=== PATIENT | male | born 1965 | race Caucasian/White ===

== ENCOUNTER 2021-12-03 15:49 | Emergency (ER) | payer SELFPAY ==
--- NOTE | 2021-12-03 | ECG_ITS ---
Test Reason : CHEST PAIN Blood Pressure : / mmHG Vent. Rate : 086 BPM Atrial Rate : 086 BPM P-R Int : 152 ms QRS Dur : 116 ms QT Int : 366 ms P-R-T Axes : 069 041 059 degrees QTc Int : 437 ms Normal sinus rhythm Inferior infarct , age undetermined Abnormal ECG No previous ECGs available Referred By: Generic ED Physician Electronically Signed By:Mj Estes
--- NOTE | ~2021-12-03 | XR_ITS ---
EXAMINATION: XR CHEST CLINICAL INFORMATION: Chest pain COMPARISON: Previous chest x-ray most recent January 2021 TECHNIQUE: Frontal view of the chest was obtained. FINDINGS: The cardiac and mediastinal contours are stable. The lungs are clear. There is no pleural effusion or pneumothorax. There are degenerative changes of the spine and at the shoulder joints. XR/XR chest 1V IMPRESSION: No evidence for acute disease in the chest.
[2021-12-03 15:59] VITALS: BP 129/84; PULSE 86; RESP 20; O2SAT 98; BMI 36.9
[2021-12-03 16:13] LABS: MANUAL DIFF FLAG NO
[2021-12-03 16:14] LABS: Basophils Absolute Auto 0.1 X10*3/uL (0.0-0.2); Basophils Percent Auto 0.8 % (0-2); Eosinophils Absolute Auto 0.4 X10*3/uL (0.0-0.4); Eosinophils Percent Auto 6.2 % (0-4); Hematocrit 47.7 % (42.0-52.0); Hemoglobin 16.3 g/dl (14.0-18.0); Imm Gran Abs Auto 0.01 X10*3/uL (0.00-0.03); Imm Gran Pct Auto 0.2 % (0.0-0.4); Lymphocytes Absolute Auto 1.2 X10*3/uL (1.2-4.9); Lymphocytes Percent Auto 17.9 % (20-40); Mean Corpuscular HGB Conc 34.2 g/dl (31.0-36.0); Mean Corpuscular Hemoglobin 30.8 pg (27.0-33.0); Mean Platelet Volume 9.5 fL (9.4-12.4); Monocytes Absolute Auto 0.5 X10*3/uL (0.1-1.2); Monocytes Percent Auto 7.6 % (2-11); Neutrophils Absolute Auto 4.5 x10*3/uL (2.0-8.3); Neutrophils Percent Auto 67.3 % (45-73); Platelet Count 174 X10*3/uL (160-400); Red Cell Distribution Width 13.5 % (11.0-16.0); White Blood Count 6.6 X10*3/uL (4.8-10.8)
[2021-12-03 16:29] LABS: Alanine Aminotransferase 33 U/L (0-40); Albumin Level 4.5 g/dL (3.5-5.0); Alkaline Phosphatase 130 U/L (39-117); Anion Gap 12 (12-20); Aspartate Amino Transferase 19 U/L (5-37); Bilirubin Total 0.6 mg/dL (0.0-1.0); Blood Urea Nitrogen 11 mg/dL (9-16); Calcium 9.6 mg/dL (8.4-10.2); Carbon Dioxide 26 mmol/L (22-29); Chloride 103 mmol/L (96-108); Creatinine Clr Calc Pharmacy 120.4; Estimated Glomerular Filt Rate > 60; Glucose Random 86 mg/dL (60-115); Potassium 4.1 mmol/L (3.3-5.1); Sodium 137 mmol/L (135-145); Total Protein 7.6 g/dL (6.5-8.0)
[2021-12-03 16:33] LABS: Troponin-I High Sensitivity < 3.5 ng/L (<3.5-35.0)
[2021-12-03 16:42] VITALS: BP 145/103; PULSE 85
[2021-12-03] MEDS: Ibuprofen 600 MG TABLET PO (16:45)
== END 2021-12-04 01:30 | disposition left against medical advice (07) ==
PROVIDERS: Emergency Provider Emergency Medicine
DX: R07.9 Chest pain, unspecified (principal)
CPT/HCPCS: 36415; 71045; 80053; 84484; 85025; 93005; 99283

== ENCOUNTER 2021-12-10 08:59 | Observation (INO) | payer OTHER, SELFPAY ==
--- NOTE | ~2021-12-10 | CT_ITS ---
EXAMINATION: CT ABDOMEN AND PELVIS WITH CONTRAST CLINICAL INFORMATION: Epigastric pain. Nausea vomiting and diarrhea. History of pancreatitis. COMPARISON: Previous CT of the abdomen and pelvis most recent 11/19/2021 and right upper quadrant ultrasound 10/30/2021 TECHNIQUE: Multidetector volumetric images were obtained from the superior aspect of the liver through the pubic symphysis following administration 85 mL of Omnipaque 350 intravenous contrast. Sagittal and coronal reformatted images were obtained on the technologist's workstation. Oral contrast: Yes This CT examination was performed using dose optimization techniques as appropriate, variously including the following: *Automated exposure control *Adjustment of mA and/or kV according to patient size (this includes techniques or standardized protocols for targeted exams where dose is matched to indication/reason for exam; i.e. extremities or head) *Use of iterative reconstruction technique DLP: 1022 mGy-cm FINDINGS: LUNG BASES: The visualized lung bases are unremarkable. LIVER, GALLBLADDER, AND BILIARY TREE: The liver is normal in size, shape, and attenuation. No focal hepatic lesion or biliary ductal dilatation is present. The gallbladder has been removed. PANCREAS: Unremarkable. SPLEEN: Spleen is slightly enlarged measuring 14.7 cm in length. ADRENAL GLANDS: There is a 1.4 cm low-attenuation left adrenal lesion that is stable and probably represents a benign adenoma. KIDNEYS AND URETERS: The kidneys are normal in size, shape, and attenuation. No hydronephrosis, hydroureter, or calculi seen. No perinephric stranding. BLADDER: Not optimally distended. The bladder wall may be thickened. GASTROINTESTINAL TRACT: The small and large bowel are unremarkable. The appendix is unremarkable. ABDOMINAL WALL: There is evidence of previous bilateral inguinal hernia repair with mesh. LYMPH NODES: Normal. VASCULAR: There is evidence of atherosclerotic disease. No aneurysm is seen. PELVIC VISCERA: Unremarkable. OSSEOUS STRUCTURES: There are degenerative changes of the spine. There is mild anterior subluxation of L5 with respect to S1 and L5 pars defect. CT/CT abdomen pelvis w con IMPRESSION: Normal-appearing pancreas. No evidence of pancreatitis. Post cholecystectomy. Slightly enlarged spleen. Stable low-attenuation left adrenal lesion probably representing a benign adenoma. These findings are similar to previous exams. Fleischner guidelines were followed.
[2021-12-10 09:13] VITALS: BP 157/82; PULSE 78; RESP 22; TEMP 36.8; O2SAT 95; BMI 38.0
[2021-12-10 09:26] LABS: MANUAL DIFF FLAG NO
--- NOTE | 2021-12-10 09:29 | ECG_ITS ---
Test Reason : ap Blood Pressure : / mmHG Vent. Rate : 085 BPM Atrial Rate : 085 BPM P-R Int : 166 ms QRS Dur : 112 ms QT Int : 386 ms P-R-T Axes : 076 105 070 degrees QTc Int : 459 ms Normal sinus rhythm Rightward axis Incomplete right bundle branch block Inferior infarct (cited on or before 03-DEC-2021) Abnormal ECG When compared with ECG of 03-DEC-2021 16:00, QRS axis Shifted right Referred By: Generic ED Physician Electronically Signed By:BEN MURPHY MD
[2021-12-10 09:30] LABS: Basophils Percent Auto 0.4 % (0-2); Eosinophils Absolute Auto 0.5 X10*3/uL (0.0-0.4); Eosinophils Percent Auto 6.5 % (0-4); Hematocrit 46.9 % (42.0-52.0); Hemoglobin 16.1 g/dl (14.0-18.0); Imm Gran Abs Auto 0.02 X10*3/uL (0.00-0.03); Imm Gran Pct Auto 0.3 % (0.0-0.4); Lymphocytes Absolute Auto 1.2 X10*3/uL (1.2-4.9); Lymphocytes Percent Auto 16.2 % (20-40); Mean Corpuscular HGB Conc 34.3 g/dl (31.0-36.0); Mean Corpuscular Volume 90.4 fL (80.0-98.0); Mean Platelet Volume 9.8 fL (9.4-12.4); Monocytes Absolute Auto 0.5 X10*3/uL (0.1-1.2); Monocytes Percent Auto 7.4 % (2-11); Neutrophils Percent Auto 69.2 % (45-73); Platelet Count 176 X10*3/uL (160-400); Red Blood Count 5.19 X10*6/uL (4.60-5.80); Red Cell Distribution Width 13.9 % (11.0-16.0); White Blood Count 7.3 X10*3/uL (4.8-10.8)
[2021-12-10 09:45] LABS: Alanine Aminotransferase 24 U/L (0-40); Albumin Level 4.6 g/dL (3.5-5.0); Alkaline Phosphatase 121 U/L (39-117); Anion Gap 13 (12-20); Aspartate Amino Transferase 20 U/L (5-37); Bilirubin Direct 0.3 mg/dL (0.0-0.5); Bilirubin Total 0.9 mg/dL (0.0-1.0); Blood Urea Nitrogen 16 mg/dL (9-16); Calcium 9.1 mg/dL (8.4-10.2); Carbon Dioxide 27 mmol/L (22-29); Chloride 103 mmol/L (96-108); Estimated Glomerular Filt Rate > 60; Glucose Random 126 mg/dL (60-115); Lipase 423 U/L (8-78); Potassium 3.9 mmol/L (3.3-5.1); Sodium 139 mmol/L (135-145); Total Protein 7.6 g/dL (6.5-8.0)
[2021-12-10 10:00] VITALS: BP 125/76; PULSE 78; RESP 18; TEMP 36.4; O2SAT 98
[2021-12-10] MEDS: ondansetron HCL 4 MG/2 ML VIAL IVPUSH (10:24)
[2021-12-10] MEDS: Morphine Sulfate 4 MG/ML CARTRIDGE IVPUSH (10:24)
[2021-12-10] MEDS: 0.9 % Sodium Chloride 1,000 ML 999 ML IV ×2 (10:25→11:44)
--- NOTE | 2021-12-10 10:25 | PC.NURSE ---
Pt c/o mid abd pain with n/v since 6am. feels like my pancreas did months ago . no active vomiting. pt grimacing in bed. moist mm. skin pwd. abd is soft. no distention.
[2021-12-10 10:31] LABS: Magnesium 2.2 mg/dL (1.6-2.6)
[2021-12-10] MEDS: HYDROmorphone HCl 1 MG/ML SYRINGE IVPUSH ×3 (10:48→14:21)
--- NOTE | 2021-12-10 10:52 | PC.NURSE ---
Pt medicated again for persistent abd pain. no vomiting. unable to tolerate CT table as of yet.
--- NOTE | 2021-12-10 11:06 | ED_ITS ---
HPI - Abdominal Pain General Chief Complaint: Abdominal Pain Stated Complaint: NAUSEA VOMITING DIARRHEA ABD PAIN Time Seen by Provider: 12/10/21 10:04 Source: patient Mode of arrival: ambulatory History of Present Illness HPI narrative: 56-year-old male with a past medical history of anxiety, psoriatic arthritis, cholecystectomy, pancreatitis, presenting to the ED complaining of epigastric abdominal pain since last night with associated nausea, vomiting, and diarrhea. Admits pain feels similar to prior pancreatitis flares. Denies EtOH use. Denies fever, chills, constipation, dysuria /hematuria MD elicited complaint: abdominal pain Onset (ago): hour(s) Pain Consistency: constant Location: epigastric Severity: similar to previous episodes Related Data Home Medications Medication Instructions Recorded Confirmed clonazepam 1 mg tablet 1 mg PO TID 12/10/21 12/10/21 sertraline 100 mg tablet (Zoloft) 200 mg PO DAILY 12/10/21 12/10/21 Allergies Allergy/AdvReac Type Severity Reaction Status Date / Time haloperidol [From Haldol] Allergy Involuntary Verified 12/10/21 09:16 Spasms ketorolac [From Toradol] Allergy Involuntary Verified 12/10/21 09:16 Spasms Review of Systems Review of Systems Constitutional: No Fever, No Chills, No Fatigue, No Malaise ENT/Mouth: No Ear Pain, No Nasal Congestion, No sore throat, No Rhinorrhea, No Swallowing Difficulty Eyes: No Eye Pain, No Swelling, No Redness, No Discharge Cardiovascular: No Chest Pain, No SOB, No Edema, No Palpitations Respiratory: No Cough, No Dyspnea Gastrointestinal: + Nausea, + Vomiting, + Diarrhea, No Constipation, + Abdominal pain Genitourinary: No Dysuria, No Urinary Frequency, No Hematuria, No Flank Pain, No Urinary Flow Changes, No Hesitancy Musculoskeletal: No joint pain, No Myalgias, No Joint Swelling Skin: No Skin Lesions, No rash Neuro: No Weakness, No Dizziness, No Headache Yes all other systems are reviewed and are negative [facility] Past Medical History Attestation statement: The following information was validated with the patient. Medical History Anxiety FH: cholecystectomy Psoriatic arthritis Social History Social History Alcohol intake: former Patient Tobacco Use Status: Current everyday Tobacco user Use of substances other than those prescribed or required for medical reasons: No Advance Directives: Yes Advance Directives Information Provided: Yes Advance Directives on File: No Physical Exam ED Vital Signs: Vital Signs - 24 hr 12/10/21 09:13 12/10/21 10:00 12/10/21 11:45 Temperature 98.3 F 97.6 F Pulse Rate 78 78 82 Respiratory Rate 22 H 18 18 Blood Pressure 157/82 H 125/76 112/68 Pulse Oximetry 95 98 96 BMI result Body Mass Index 38.0 Const Other: appears in pain General: cooperative and healthy appearing Orientation/consciousness: patient oriented x3 Limitations: no limitations HENMT Head: Yes normal to inspection Ears: hearing grossly normal bilaterally General nose exam: Normal external nose present Face and sinus: Yes normal facial exam Eyes General: appearance normal, both eyes and all related structures EOM: EOMs intact bilaterally Neck Neck: Yes normal visual inspection and Yes no meningeal signs Resp Effort & Inspection: normal respiratory effort and no respiratory distress Auscultation: clear to auscultation bilaterally Cardio Rate: regular rate Heart sounds: S1 normal heart sound present and S2 normal heart sound present GI Inspection: Yes normal to inspection Palpation (GI): Soft to palpation, Tenderness to palpation present (GI) in the epigastrum, in the LUQ and in the RUQ, no guarding and not rigid General: Yes no CVA tenderness Back/Spine/Pelvis Back: no CVA tenderness Skin Rashes: no rashes Wounds: no wounds Neuro General: patient oriented x3 and no meningeal signs Gait exam (Neuro): Normal gait present Extrem General: Yes normal to inspection Course Course Course Narrative: -1315-- no leukocytosis. Lipase 423. Labs otherwise unremarkable CT abdomen pelvis w con IMPRESSION: Normal-appearing pancreas. No evidence of pancreatitis. Post cholecystectomy. Slightly enlarged spleen. Stable low-attenuation left adrenal lesion probably representing a benign adenoma. These findings are similar to previous exams. - Wever's criteria on admission = 0, severe pancreatitis unlikely -1324-- on re-evaluation patient is still in severe pain. Will admit for further management ? MDM - Abdominal Pain MDM Narrative Medical decision making narrative: 56-year-old male with a past medical history of anxiety, psoriatic arthritis, cholecystectomy, pancreatitis, presenting to the ED complaining of epigastric abdominal pain since last night with associated nausea, vomiting, and diarrhea. on exam initially tachypneic likely from pain, writhing around on bed, abdomen soft with epigastric/ upper abdominal tenderness, no rebound or guarding, no CVAT. Concern for pancreatitis. Lower concern for appendicitis/diverticulitis or renal stone/pyelo. Plan: Labs, UA, CT, IVF, pain management, re-evaluate Differential Diagnosis Differential diagnosis: Likely abdominal pain and pancreatitis Medical Records Attestation: I reviewed the patient's medical records. Lab Data Attestation: I reviewed the patient's lab results. Result diagrams: 12/10/21 09:21 12/10/21 09:21 Labs: Lab Results 12/10/21 12/10/21 Range/Units 09:21 09:21 WBC 7.3 (4.8-10.8) X10*3/uL RBC 5.19 (4.60-5.80) X10*6/uL Hgb 16.1 (14.0-18.0) g/dl Hct 46.9 (42.0-52.0) % MCV 90.4 (80.0-98.0) fL MCH 31.0 (27.0-33.0) pg MCHC 34.3 (31.0-36.0) g/dl RDW 13.9 (11.0-16.0) % Plt Count 176 (160-400) X10*3/uL MPV 9.8 (9.4-12.4) fL Immature Gran % (Auto) 0.3 (0.0-0.4) % Neut % (Auto) 69.2 (45-73) % Lymph % (Auto) 16.2 L (20-40) % [place] % (Auto) 7.4 (2-11) % Eos % (Auto) 6.5 H (0-4) % Baso % (Auto) 0.4 (0-2) % Lymph # (Auto) 1.2 (1.2-4.9) X10*3/uL [place] # (Auto) 0.5 (0.1-1.2) X10*3/uL Eos # (Auto) 0.5 H (0.0-0.4) X10*3/uL Baso # (Auto) 0.0 (0.0-0.2) X10*3/uL Abs Immat Gran (auto) 0.02 (0.00-0.03) X10*3/uL Absolute Neuts (auto) 5.0 (2.0-8.3) x10*3/uL Absolute Nucleated RBC 0.000 (0.0-0.012) X10*3/uL Nucleated RBC % (auto) 0.0 (0.0-0.2) /100WBC Sodium 139 (135-145) mmol/L Potassium 3.9 (3.3-5.1) mmol/L Chloride 103 (96-108) mmol/L Carbon Dioxide 27 (22-29) mmol/L Anion Gap 13 (12-20) BUN 16 (9-16) mg/dL Creatinine 0.98 (0.5-1.4) mg/dL Estim Creat Clear Calc 104.0 Estimated GFR > 60 Random Glucose 126 H D (60-115) mg/dL Calcium 9.1 (8.4-10.2) mg/dL Magnesium 2.2 (1.6-2.6) mg/dL Total Bilirubin 0.9 (0.0-1.0) mg/dL Direct Bilirubin 0.3 (0.0-0.5) mg/dL AST 20 (5-37) U/L ALT 24 (0-40) U/L Alkaline Phosphatase 121 H (39-117) U/L Lactate Dehydrogenase 148 (118-273) U/L Total Protein 7.6 (6.5-8.0) g/dL Albumin 4.6 (3.5-5.0) g/dL Lipase 423 H (8-78) U/L Discharge Plan Discharge Clinical Impression: Pancreatitis Qualifiers: Chronicity: acute Pancreatitis type: unspecified pancreatitis type Acute pancreatitis complication: unspecified Qualified Code(s): K85.90 - Acute pancreatitis without necrosis or infection, unspecified Patient Disposition: Admitted As Inpatient
[2021-12-10 11:21] LABS: Lactate Dehydrogenase 148 U/L (118-273)
[2021-12-10] MEDS: iohexoL 350 MG/ML 100 ML INFUS..BTL IV (11:34)
[2021-12-10 11:45] VITALS: BP 112/68; PULSE 82; RESP 18; O2SAT 96
[2021-12-10] MEDS: Famotidine/PF 20 MG/2 ML VIAL IVPUSH (13:42)
[2021-12-10 14:05] LABS: COVID-19 Test Negative (Negative)
--- NOTE | 2021-12-10 14:15 | P.HPHOSP_ITS ---
History of Present Illness Date of Service: 12/10/21 Attending physician on admission: Cameron Morales Chief Complaint: abdominal pain this is a 56 year old male who presents to the ED with abdominal pain. He began having non-bloody emesis overnight followed by epigastic abdominal pain and kailey rrhea. He describes the abdominal pain as sharp in nature with radiation to his back. He reports numerous bouts of pancreatitis in the past. By his report these episodes never show any changes on CT scan. He denies the use of NSAIDs, he denies drinking alcohol, stating that he quit drinking [address] scan of the abdomen showed no acute abnormalities, unremarkable pancreas. His lab work was unremarkable with the exception of lipase of 423, mild elevation of alk phos at 121. He required multiple doses of IV narcotics in the ED and his abdominal pain was unable to be controlled. For this reason the decision was made to admit him for further management. [facility] Medical History (Updated 12/10/21 @ 14:33 by CIHVO Ware) Anxiety FH: cholecystectomy Psoriatic arthritis Sphincter of Oddi dysfunction Functional capacity: independent ambulation Surgical History (Updated 12/10/21 @ 14:30 by CHIVO Ware) H/O knee surgery History of cholecystectomy History of hernia surgery Previous back surgery Social History (Updated 12/10/21 @ 14:30 by CHIVO Ware) Alcohol intake: former Patient Tobacco Use Status: Current everyday Tobacco user Tobacco use type: Cigarette Cigarette Packs Per Day: 1 Use of substances other than those prescribed or required for medical reasons: No Advance Directives: Yes Advance Directives Information Provided: Yes Advance Directives on File: No Meds Allergies Allergy/AdvReac Type Severity Reaction Status Date / Time haloperidol [From Haldol] Allergy Involuntary Verified 12/10/21 09:16 Spasms ketorolac [From Toradol] Allergy Involuntary Verified 12/10/21 09:16 Spasms Active Medications: Current Medications Acetaminophen (Acetaminophen 325 Mg Tablet) 650 mg PO Q6H PRN PRN Reason: Pain, Mild (Pain Scale 1-3) Clonazepam (Clonazepam 1 Mg Tablet) 1 mg PO TID SANGITA Docusate Sodium (Docusate Sodium 100 Mg Capsule) 100 mg PO DAILY PRN PRN Reason: Constipation Famotidine (Famotidine/Pf 20 Mg/2 Ml Vial) 20 mg IVPUSH DAILY SANGITA Hydromorphone HCl (Hydromorphone Hcl 1 Mg/Ml Syringe) 1 mg IVPUSH Q4H PRN; Protocol PRN Reason: Pain, Severe (Pain Scale 7-10) Lactated Ringer's (Lr) 1,000 mls @ 100 mls/hr IVCONT .Q10H [facility] Ondansetron HCl (Ondansetron Hcl 4 Mg/2 Ml Vial) 4 mg IVPUSH Q8H PRN PRN Reason: Nausea and Vomiting Pharmacy Consult (Consult Rx Perform Med Rec) 1 each MISCELLANE ONCE PRN PRN Reason: Consult order Sertraline HCl (Sertraline Hcl 100 Mg Tablet) 200 mg PO DAILY [facility] Sodium Chloride (0.9 % Sodium Chloride Flush 3 Ml Syringe) 3 ml IVFLUSH QSHIFT [facility] Home Medications Medication Instructions Recorded Confirmed Last Taken Type clonazepam 1 mg tablet 1 mg PO TID 12/10/21 12/10/21 12/10/21 History sertraline 100 mg tablet (Zoloft) 200 mg PO DAILY 12/10/21 12/10/21 12/10/21 History Physical Exam Vital Signs and Narrative: Vital Signs: Last Vital Signs Temp 97.6 F 12/10/21 10:00 Pulse 82 12/10/21 11:45 Resp 18 12/10/21 11:45 BP 112/68 12/10/21 11:45 Pulse Ox 96 12/10/21 11:45 BMI result Body Mass Index 38.0 Const: General: cooperative, alert and awake Nutritional Appearance: overweight Orientation/consciousness: patient oriented x3 Resp: Effort & Inspection: normal respiratory effort and able to speak in complete sentences Cardio: Rate: regular rate Heart sounds: S1 normal heart sound present and S2 normal heart sound present GI: Other: soft, non-distended; tender primarily epigastric region Neuro: General: patient oriented x3 Extrem: Other: moving all 4 extremities spontaneously Results Labs CBC and Chem 7: 12/10/21 09:21 12/10/21 09:21 Labs: Laboratory Results - last 24 hr 12/10/21 12/10/21 12/10/21 09:21 09:21 13:45 MCV 90.4 MCH 31.0 MCHC 34.3 RDW 13.9 Plt Count 176 MPV 9.8 Immature Gran % (Auto) 0.3 Neut % (Auto) 69.2 Lymph % (Auto) 16.2 L [place] % (Auto) 7.4 Eos % (Auto) 6.5 H Baso % (Auto) 0.4 Lymph # (Auto) 1.2 [place] # (Auto) 0.5 Eos # (Auto) 0.5 H Baso # (Auto) 0.0 Abs Immat Gran (auto) 0.02 Absolute Neuts (auto) 5.0 Absolute Nucleated RBC 0.000 Nucleated RBC % (auto) 0.0 Anion Gap 13 Estim Creat Clear Calc 104.0 Estimated GFR > 60 Random Glucose 126 H D Calcium 9.1 Magnesium 2.2 Total Bilirubin 0.9 Direct Bilirubin 0.3 AST 20 ALT 24 Alkaline Phosphatase 121 H Lactate Dehydrogenase 148 Total Protein 7.6 Albumin 4.6 Lipase 423 H COVID-19 ([facility]) Negative COVID-19 Clin Com See Note Imaging Radiologist's Impressions: Impressions Abdomen/Pelvis CT 12/10/21 11:32 IMPRESSION: Normal-appearing pancreas. No evidence of pancreatitis. Post cholecystectomy. Slightly enlarged spleen. Stable low-attenuation left adrenal lesion probably representing a benign adenoma. These findings are similar to previous exams. Fleischner guidelines were followed. Assessment and Plan (1) Abdominal pain: Status: Acute Plan This is a 56 year old male with history of psoriatic arthritis, anxiety who presents with abdominal pain Abdominal pain possible gastritis h/o pancreatitis, but negative CT scan NPO, IVF IV pepcid Pain control ADAT Anxiety continue home meds dvt ppx - SCD boots code status - full code Attending: dr. morales Quality Stroke Does the patient have a stroke diagnosis?: No VTE Prior VTE?: No VTE Risk Level:: Medical - moderate - high VTE Device Contraindication: N/A - Device Ordered VTE Drug Contraindication: Treatment Not Indicated
[2021-12-10 14:22] VITALS: BP 127/81; PULSE 76; RESP 18; O2SAT 98
--- NOTE | 2021-12-10 15:19 | PC.NURSE ---
Patient stating that he wants to leave AMA. Reported feeling more comfortable after receiving 3rd dose of dilaudid. Pt asked for review of admission orders. after reviewing orders states that he will sign out AMA. 'I feel better and I might as well go home. Asked to stay for observation. States i'll probably be fine . Pt had asked at time to have dilaudid given undiluted and faster. While this RN was on the phone with Admiting provider patient left unseen. IV was removed by patient and was left on the cart in room 19.
--- NOTE | 2021-12-10 15:46 | MHC.CM.PN ---
Patient left AMA before being seen by case management.
--- NOTE | 2021-12-10 16:08 | PM.DS ---
DS: Providers Provider Date of Service: 12/10/21 Date of admission: 12/10/21 14:11 Date of discharge: 12/10/21 Primary care physician: None Physician Attending physician on discharge: Cameron Lopez Discharging clinician: Janeen Hill DS: Diagnosis Discharge Diagnosis (1) Abdominal pain: Status: Acute DS: Summary Hospital Course Hospital Course: patient admitted for abdominal pain. eloped from ED. please see admission H&P for details and physical exam Time Spent with Patient Time attestation: Total time spent providing and/or coordinating discharge services: Discharge coordination time: Greater than 30 minutes Quality: Stroke Does the patient have a stroke diagnosis?: No Physical Exam Vital Signs: Vital Signs: Last Vital Signs Temp 97.6 F 12/10/21 10:00 Pulse 76 12/10/21 14:22 Resp 18 12/10/21 14:22 BP 127/81 12/10/21 14:22 Pulse Ox 98 12/10/21 14:22 BMI result Body Mass Index 38.0 DS: Data Data Completed and Pending Labs on day of discharge: Laboratory Results - last 24 hr 12/10/21 12/10/21 12/10/21 09:21 09:21 13:45 WBC 7.3 RBC 5.19 Hgb 16.1 Hct 46.9 MCV 90.4 MCH 31.0 MCHC 34.3 RDW 13.9 Plt Count 176 MPV 9.8 Immature Gran % (Auto) 0.3 Neut % (Auto) 69.2 Lymph % (Auto) 16.2 L [place] % (Auto) 7.4 Eos % (Auto) 6.5 H Baso % (Auto) 0.4 Lymph # (Auto) 1.2 [place] # (Auto) 0.5 Eos # (Auto) 0.5 H Baso # (Auto) 0.0 Abs Immat Gran (auto) 0.02 Absolute Neuts (auto) 5.0 Absolute Nucleated RBC 0.000 Nucleated RBC % (auto) 0.0 Sodium 139 Potassium 3.9 Chloride 103 Carbon Dioxide 27 Anion Gap 13 BUN 16 Creatinine 0.98 Estim Creat Clear Calc 104.0 Estimated GFR > 60 Random Glucose 126 H D Calcium 9.1 Magnesium 2.2 Total Bilirubin 0.9 Direct Bilirubin 0.3 AST 20 ALT 24 Alkaline Phosphatase 121 H Lactate Dehydrogenase 148 Total Protein 7.6 Albumin 4.6 Lipase 423 H COVID-19 ([facility]) Negative COVID-19 Clin Com See Note Discharge Plan Discharge Patient Disposition: Left Against Medical Advice Discharge Diagnosis: abdominal pain Referrals: Physician,None [Primary Care Provider] - 1 Week Discharge Medications: No Action sertraline [Zoloft] 100 mg Tablet 200 mg PO DAILY 0RF clonazepam [Klonopin] 1 mg Tablet 1 mg PO BID 0RF clonazepam [Klonopin] 1 mg Tablet 0.5 - 1 mg PO BEDTIME PRN (Reason: Anxiety) 0RF amitriptyline 10 mg Tablet 20 mg PO BEDTIME 0RF Discharge Orders: Discharge Order (Routine); Ordered 12/10/21 Ordered By: Janeen Hill Care Plan Goals: left ama Health Concerns: left AMA Plan of Treatment: Recommend to follow up with primary GI and PCP Assessment: pt admitted for observation of acute abdominal pain, left against medical advice.
== END 2021-12-10 15:20 | disposition left against medical advice (07) ==
LOC: HO.ED 13:42 → HO.EDOVER 14:22
PROVIDERS: Physician Assistant; Admitting Provider Physician Assistant Medical; Emergency Provider Emergency Medicine; Visit Provider Physician Assistant Medical
DX: R10.13 Epigastric pain (principal); R11.2 Nausea with vomiting, unspecified; R19.7 Diarrhea, unspecified; R74.02 Elevation of levels of lactic acid dehydrogenase [LDH]; R74.8 Abnormal levels of other serum enzymes; K83.09 Other cholangitis; I25.10 Atherosclerotic heart disease of native coronary artery without angina pectoris; I45.19 Other right bundle-branch block; L40.50 Arthropathic psoriasis, unspecified; F41.9 Anxiety disorder, unspecified; F17.210 Nicotine dependence, cigarettes, uncomplicated; Z20.822 Contact with and (suspected) exposure to COVID-19; Z90.49 Acquired absence of other specified parts of digestive tract; Z88.8 Allergy status to other drugs, medicaments and biological substances; Z79.899 Other long term (current) drug therapy; Z53.21 Procedure and treatment not carried out due to patient leaving prior to being seen by health care provider
CPT/HCPCS: 36415; 74177; 80053; 82248; 83615; 83690; 83735; 85025; 87635; 93005; 96361; 96374; 96375; 96376; 99218; 99284; 99285; J1170; J2270; J2405; Q9967

== ENCOUNTER 2021-12-14 08:02 | Inpatient (IN) | payer OTHER, SELFPAY ==
[2021-12-14] VITALS (7 sets, daily range): BP systolic 99–150; BP diastolic 62–80; PULSE 70–82; RESP 14–22; TEMP 36.1–36.8; O2SAT 95–98; BMI 38.0
--- NOTE | 2021-12-14 08:46 | ED.ABDPAIN ---
HPI - Abdominal Pain General Chief Complaint: Abdominal Pain Stated Complaint: Panreatitis Time Seen by Provider: 12/14/21 08:28 Source: patient Mode of arrival: ambulatory Limitations: no limitations History of Present Illness HPI narrative: 56-year-old male with history of anxiety/depression, psoriatic arthritis, recurrent episodes of pancreatitis who presents today a acute onset of epigastric abdominal pain that started in the middle night last night. He reports he was followed by several episodes of nonbloody diarrhea and 3 or 4 episodes of nonbloody vomiting this morning. He was recently seen in the emergency department on December 10 for pancreatitis, with a lipase of 423 and normal appearing pancreas on CT. He required multiple doses of IV narcotics and was admitted but left AMA because he was worried about how to pay for it. He has no insurance. He said when he went home he stuck to a liquid diet and the pain was improved. Last night he had a pasta dinner and had no pain immediately following however he did have severe pain in the middle the night that kept him up all night with the nausea, vomiting and diarrhea. He denies any fevers. 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 He is s/p cholecystectomy. 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 MD elicited complaint: abdominal pain Pertinent past history: other (Pancreatitis) Onset (ago): hour(s) Pain Consistency: constant Location: epigastric Severity: severe Pain scale (0-10): 10 Quality: aching Radiation: none Migration to: no migration Exacerbating factors: eating Relieving factors: nothing Context: history of similar episodes Associated symptoms: nausea, vomiting and diarrhea Related Data Home Medications Medication Instructions Recorded Confirmed clonazepam 1 mg tablet (Klonopin) 1 mg PO TID 12/10/21 12/14/21 sertraline 100 mg tablet (Zoloft) 200 mg PO DAILY 12/10/21 12/14/21 Allergies Allergy/AdvReac Type Severity Reaction Status Date / Time haloperidol [From Haldol] Allergy Involuntary Verified 12/10/21 09:16 Spasms ketorolac [From Toradol] Allergy Involuntary Verified 12/10/21 09:16 Spasms Review of Systems Review of Systems Constitutional: No Fever, No Chills ENT/Mouth: No sore throat, No Rhinorrhea, No Swallowing Difficulty Cardiovascular: No Chest Pain, No SOB, No Orthopnea, No Edema Respiratory: No Cough, No Sputum, No Wheezing, No dyspnea Gastrointestinal: + Nausea, + Vomiting, + Diarrhea, + abdominal Pain, No Hematochezia, No Melena Genitourinary: No Dysuria, No Urinary Frequency, No Hematuria Musculoskeletal: No joint pain, No Myalgias Skin: No Skin Lesions, No rash Neuro: No Weakness, No Numbness, No Dizziness, No Headache Psych: No Anxiety/Panic, No Depression Heme/Lymph: No Bruising, No Lymphadenopathy Endocrine: No Polyuria, No Polydipsia [facility] Past Medical History Medical History (Updated 12/14/21 @ 11:17 by CHIVO Gonzalez) Anxiety FH: cholecystectomy Psoriatic arthritis Sphincter of Oddi dysfunction Surgical History (Updated 12/10/21 @ 14:30 by CHIVO Ware) H/O knee surgery History of cholecystectomy History of hernia surgery Previous back surgery Social History Social History (Updated 12/10/21 @ 14:30 by CHIVO Ware) Alcohol intake: former Patient Tobacco Use Status: Current everyday Tobacco user Tobacco use type: Cigarette Cigarette Packs Per Day: 1 Smoked in Last 30 Days: Yes Use of substances other than those prescribed or required for medical reasons: No Advance Directives: No Advance Directives Information Provided: No Physical Exam ED Vital Signs: Vital Signs - 24 hr 12/14/21 08:04 12/14/21 08:50 12/14/21 10:00 Temperature 96.9 F 98.2 F Pulse Rate 82 76 74 Respiratory Rate 22 H 20 Blood Pressure 143/79 H 148/75 H 150/75 H Pulse Oximetry 98 95 BMI result Body Mass Index 38.0 Appearance: Alert. Oriented X3. Appears uncomfortable and in pain, Eyes: Pupils equal, round and reactive to light. ENT: Pharynx normal. Neck: Normal inspection. Neck supple. CVS: Normal heart rate and rhythm. Pulses normal. Respiratory: No respiratory distress. Breath sounds normal. Abdomen: Normal inspection, soft but guarded with epigastric and periumbilical tenderness. no rebound. normal +BS x4 Skin: Skin warm and dry. Normal skin color. Normal skin turgor. No rashes. Extremities: No lower extremity edema. Left wrist in velcro splint Neuro: Oriented X 3. No motor deficit. No sensory deficit. Course Course Course Narrative: 56 y/o male with history of recurrent pancreatitis presents to the ER with central abdominal pain, N/V/D since last night. Recently seen here for the same with normal CT scan but elevated lipase in the 400s. Left AMA. Now willing to stay if needed. Will repeat labs, get IV access give IVF and pain control. Will reassess. Hold off on repeat CT scan for now. Reevaluation(s) Reevaluation #1: 8:45 am - patient continues to c/o 10/10 pain and is groaning on the stretcher. repeat dose of 1 mg IV dilaudid ordered. Reevaluation #2: 10:30 am - lipase 242 from 423 on 12/10. labs otherwise unremarkable. Continues to c/o 7/10 pain. Reports this pain is exactly like his previous episodes of previous episodes of pancreatitis. Will give trial of GI cocktail as well, although he denies burning abd pain or hx GERD. He states he usually requires 2mg at one to get control. He also reports ongoing nausea and vomited once. Will plan to re-medicate and admit for further management and workup. Lipid panel ordered. Spoke with Dr. Gómez who will admit the patient. MDM - Abdominal Pain Lab Data Result diagrams: 12/14/21 08:58 12/14/21 08:58 Labs: Lab Results 12/14/21 12/14/21 12/14/21 Range/Units 08:56 08:58 08:58 WBC 6.2 (4.8-10.8) X10*3/uL RBC 4.94 (4.60-5.80) X10*6/uL Hgb 15.1 (14.0-18.0) g/dl Hct 44.2 (42.0-52.0) % MCV 89.5 (80.0-98.0) fL MCH 30.6 (27.0-33.0) pg MCHC 34.2 (31.0-36.0) g/dl RDW 13.5 (11.0-16.0) % Plt Count 156 L (160-400) X10*3/uL MPV 9.5 (9.4-12.4) fL Immature Gran % (Auto) 0.3 (0.0-0.4) % Neut % (Auto) 71.9 (45-73) % Lymph % (Auto) 15.4 L (20-40) % [place] % (Auto) 6.1 (2-11) % Eos % (Auto) 5.8 H (0-4) % Baso % (Auto) 0.5 (0-2) % Lymph # (Auto) 1.0 L (1.2-4.9) X10*3/uL [place] # (Auto) 0.4 (0.1-1.2) X10*3/uL Eos # (Auto) 0.4 (0.0-0.4) X10*3/uL Baso # (Auto) 0.0 (0.0-0.2) X10*3/uL Abs Immat Gran (auto) 0.02 (0.00-0.03) X10*3/uL Absolute Neuts (auto) 4.5 (2.0-8.3) x10*3/uL Absolute Nucleated RBC 0.000 (0.0-0.012) X10*3/uL Nucleated RBC % (auto) 0.0 (0.0-0.2) /100WBC Sodium Cancelled Potassium Cancelled Chloride Cancelled Carbon Dioxide Cancelled Anion Gap Cancelled BUN Cancelled Creatinine Cancelled Estim Creat Clear Calc Cancelled Estimated GFR Cancelled Random Glucose Cancelled Calcium Cancelled Magnesium Cancelled Total Bilirubin Cancelled Direct Bilirubin Cancelled AST Cancelled ALT Cancelled Alkaline Phosphatase Cancelled Total Protein Cancelled Albumin Cancelled Lipase Cancelled Urine Color Urine Appearance Urine pH (5.0-8.0) Ur Specific [place] (1.005-1.025) Urine Protein (NEG-TRACE) MG/DL Urine Glucose (UA) (NEG) MG/DL Urine Ketones (NEG) MG/DL Urine Blood (NEG) Urine Nitrite (NEG) Ur Leukocyte Esterase (NEG) Urine Opiates Screen (Not Detect) Urine Fentanyl Screen (Not Detect) Ur Barbiturates Screen (Not Detect) Ur Phencyclidine Scrn (Not Detect) Ur Amphetamines Screen (Not Detect) U Benzodiazepines Scrn (Not Detect) Urine Cocaine Screen (Not Detect) U Marijuana (THC) Screen (Not Detect) Ethyl Alcohol mg/dL COVID-19 ([facility]) Negative (Negative) COVID-19 Clin Com See Note 12/14/21 12/14/21 12/14/21 Range/Units 08:58 08:58 09:29 WBC (4.8-10.8) X10*3/uL RBC (4.60-5.80) X10*6/uL Hgb (14.0-18.0) g/dl Hct (42.0-52.0) % MCV (80.0-98.0) fL MCH (27.0-33.0) pg MCHC (31.0-36.0) g/dl RDW (11.0-16.0) % Plt Count (160-400) X10*3/uL MPV (9.4-12.4) fL Immature Gran % (Auto) (0.0-0.4) % Neut % (Auto) (45-73) % Lymph % (Auto) (20-40) % [place] % (Auto) (2-11) % Eos % (Auto) (0-4) % Baso % (Auto) (0-2) % Lymph # (Auto) (1.2-4.9) X10*3/uL [place] # (Auto) (0.1-1.2) X10*3/uL Eos # (Auto) (0.0-0.4) X10*3/uL Baso # (Auto) (0.0-0.2) X10*3/uL Abs Immat Gran (auto) (0.00-0.03) X10*3/uL Absolute Neuts (auto) (2.0-8.3) x10*3/uL Absolute Nucleated RBC (0.0-0.012) X10*3/uL Nucleated RBC % (auto) (0.0-0.2) /100WBC Sodium 138 Potassium 4.1 Chloride 106 Carbon Dioxide 26 Anion Gap 10 L BUN 16 Creatinine 0.81 Estim Creat Clear Calc 125.9 Estimated GFR > 60 Random Glucose 102 Calcium 8.9 Magnesium 1.9 Total Bilirubin 0.6 Direct Bilirubin 0.2 AST 16 ALT 21 Alkaline Phosphatase 106 Total Protein 6.7 Albumin 4.1 Lipase 242 H Urine Color Urine Appearance Urine pH (5.0-8.0) Ur Specific [place] (1.005-1.025) Urine Protein (NEG-TRACE) MG/DL Urine Glucose (UA) (NEG) MG/DL Urine Ketones (NEG) MG/DL Urine Blood (NEG) Urine Nitrite (NEG) Ur Leukocyte Esterase (NEG) Urine Opiates Screen Not Detected (Not Detect) Urine Fentanyl Screen Not Detected (Not Detect) Ur Barbiturates Screen Not Detected (Not Detect) Ur Phencyclidine Scrn Not Detected (Not Detect) Ur Amphetamines Screen Not Detected (Not Detect) U Benzodiazepines Scrn POSITIVE H (Not Detect) Urine Cocaine Screen Not Detected (Not Detect) U Marijuana (THC) Screen POSITIVE H (Not Detect) Ethyl Alcohol < 10 mg/dL COVID-19 ([facility]) (Negative) COVID-19 Clin Com 12/14/21 Range/Units 09:29 WBC (4.8-10.8) X10*3/uL RBC (4.60-5.80) X10*6/uL Hgb (14.0-18.0) g/dl Hct (42.0-52.0) % MCV (80.0-98.0) fL MCH (27.0-33.0) pg MCHC (31.0-36.0) g/dl RDW (11.0-16.0) % Plt Count (160-400) X10*3/uL MPV (9.4-12.4) fL Immature Gran % (Auto) (0.0-0.4) % Neut % (Auto) (45-73) % Lymph % (Auto) (20-40) % [place] % (Auto) (2-11) % Eos % (Auto) (0-4) % Baso % (Auto) (0-2) % Lymph # (Auto) (1.2-4.9) X10*3/uL [place] # (Auto) (0.1-1.2) X10*3/uL Eos # (Auto) (0.0-0.4) X10*3/uL Baso # (Auto) (0.0-0.2) X10*3/uL Abs Immat Gran (auto) (0.00-0.03) X10*3/uL Absolute Neuts (auto) (2.0-8.3) x10*3/uL Absolute Nucleated RBC (0.0-0.012) X10*3/uL Nucleated RBC % (auto) (0.0-0.2) /100WBC Sodium Potassium Chloride Carbon Dioxide Anion Gap BUN Creatinine Estim Creat Clear Calc Estimated GFR Random Glucose Calcium Magnesium Total Bilirubin Direct Bilirubin AST ALT Alkaline Phosphatase Total Protein Albumin Lipase Urine Color YELLOW Urine Appearance CLEAR Urine pH 5.5 (5.0-8.0) Ur Specific [place] >= 1.030 H (1.005-1.025) Urine Protein NEG (NEG-TRACE) MG/DL Urine Glucose (UA) NEG (NEG) MG/DL Urine Ketones NEG (NEG) MG/DL Urine Blood NEG (NEG) Urine Nitrite NEG (NEG) Ur Leukocyte Esterase NEG (NEG) Urine Opiates Screen (Not Detect) Urine Fentanyl Screen (Not Detect) Ur Barbiturates Screen (Not Detect) Ur Phencyclidine Scrn (Not Detect) Ur Amphetamines Screen (Not Detect) U Benzodiazepines Scrn (Not Detect) Urine Cocaine Screen (Not Detect) U Marijuana (THC) Screen (Not Detect) Ethyl Alcohol mg/dL COVID-19 ([facility]) (Negative) COVID-19 Clin Com Critical Care Time Critical Care Time Critical Care Time: Yes Total Critical Care Time: 36 Attestation: I have personally provided critical care time exclusive of time spent on separately billable procedures. Time includes review of lab data, radiology results, discussion with consultants/hospitalist, and monitoring for potential decompensation. Intervention performed as documented. Discharge Plan Discharge Clinical Impression: Pancreatitis Patient Disposition: Admitted As Inpatient
[2021-12-14 09:03] LABS: MANUAL DIFF FLAG NO
[2021-12-14 09:04] LABS: Basophils Percent Auto 0.5 % (0-2); Eosinophils Absolute Auto 0.4 X10*3/uL (0.0-0.4); Eosinophils Percent Auto 5.8 % (0-4); Hematocrit 44.2 % (42.0-52.0); Hemoglobin 15.1 g/dl (14.0-18.0); Imm Gran Abs Auto 0.02 X10*3/uL (0.00-0.03); Imm Gran Pct Auto 0.3 % (0.0-0.4); Lymphocytes Percent Auto 15.4 % (20-40); Mean Corpuscular HGB Conc 34.2 g/dl (31.0-36.0); Mean Corpuscular Hemoglobin 30.6 pg (27.0-33.0); Mean Corpuscular Volume 89.5 fL (80.0-98.0); Mean Platelet Volume 9.5 fL (9.4-12.4); Monocytes Absolute Auto 0.4 X10*3/uL (0.1-1.2); Monocytes Percent Auto 6.1 % (2-11); Neutrophils Absolute Auto 4.5 x10*3/uL (2.0-8.3); Neutrophils Percent Auto 71.9 % (45-73); Platelet Count 156 X10*3/uL (160-400); Red Blood Count 4.94 X10*6/uL (4.60-5.80); Red Cell Distribution Width 13.5 % (11.0-16.0); White Blood Count 6.2 X10*3/uL (4.8-10.8)
[2021-12-14] MEDS: HYDROmorphone HCl 1 MG/ML SYRINGE IVPUSH ×2 (09:04→10:00)
[2021-12-14] MEDS: 0.9 % Sodium Chloride 1,000 ML 999 ML IVCONT (09:04)
[2021-12-14] MEDS: ondansetron HCL 4 MG/2 ML VIAL IVPUSH (09:04)
[2021-12-14 09:21] LABS: COVID-19 Test Negative (Negative); IDNOW Serial# 55D5AD1C
[2021-12-14 09:24] LABS: Ethanol < 10 mg/dL
[2021-12-14 09:31] LABS: Alanine Aminotransferase 21 U/L (0-40); Albumin Level 4.1 g/dL (3.5-5.0); Alkaline Phosphatase 106 U/L (39-117); Anion Gap 10 (12-20); Aspartate Amino Transferase 16 U/L (5-37); Bilirubin Direct 0.2 mg/dL (0.0-0.5); Bilirubin Total 0.6 mg/dL (0.0-1.0); Blood Urea Nitrogen 16 mg/dL (9-16); Calcium 8.9 mg/dL (8.4-10.2); Carbon Dioxide 26 mmol/L (22-29); Chloride 106 mmol/L (96-108); Creatinine Clr Calc Pharmacy 125.9; Estimated Glomerular Filt Rate > 60; Glucose Random 102 mg/dL (60-115); Lipase 242 U/L (8-78); Magnesium 1.9 mg/dL (1.6-2.6); Potassium 4.1 mmol/L (3.3-5.1); Sodium 138 mmol/L (135-145); Total Protein 6.7 g/dL (6.5-8.0)
[2021-12-14 09:37] LABS: Appearance Urine CLEAR; Color Urine YELLOW; Glucose Urine UA NEG (NEG); Leukocyte Esterase Urine NEG (NEG); Nitrite Urine NEG (NEG); PH 5.5 (5.0-8.0); Specific Gravity - Urine >= 1.030 (1.005-1.025); Urine Blood NEG (NEG); Urine Ketones NEG (NEG); Urine Protein NEG (NEG-TRACE)
[2021-12-14 09:53] LABS: Amphetamine Screen Urine Not Detected (Not Detect); Barbiturates, Urine Not Detected (Not Detect); Benzodiazepines Screen Urine POSITIVE (Not Detect); Cannabinoid Screen Urine POSITIVE (Not Detect); Cocaine Screen Urine Not Detected (Not Detect); Fentanyl, urine Not Detected (Not Detect); Opiate Screen Urine Not Detected (Not Detect); Phencyclidine Screen Urine Not Detected (Not Detect)
[2021-12-14] MEDS: Magnesium Hydrox/Alum Hydrox 30 ML ORAL.SUSP PO (10:00)
[2021-12-14] MEDS: Lidocaine HCl Viscous 2 % 15 ML SOLUTION MUCOUS MEM (10:00)
[2021-12-14] MEDS: PHENobarb/Hyoscy/Atropine/Scop 10 ML ELIXIR PO (10:00)
[2021-12-14] MEDS: Lactated Ringers 1,000 ML 999 ML IV (11:14)
--- NOTE | 2021-12-14 11:25 | PHA.MEDREC ---
MED REC COMPLETE, NO ISSUES Pharmacy Consult ? Medication Reconciliation Pharmacy has completed the medication reconciliation.
[2021-12-14] MEDS: HYDROmorphone HCl 2 MG/ML VIAL IVPUSH (11:34)
[2021-12-14] MEDS: Metoclopramide HCl 10 MG/2 ML VIAL IVPUSH (11:34)
[2021-12-14 12:03] LABS: Cholesterol 164 mg/dL; HDL Cholesterol 25 mg/dL; LDL Cholesterol Calculated 111 mg/dl; Triglycerides 143 mg/dL
--- NOTE | 2021-12-14 12:21 | P.HPHOSP_ITS ---
History of Present Illness Date of Service: 12/14/21 Attending physician on admission: Derick Gómez Chief Complaint: acute pancreatitis 56 y/o M with abdominal pain. Patient in the hospital because acute pancreatitis 2-3 days back-left against medical advise, afterwards he felt slightly better for a day or so but started having abdominal pain again and was getting worse today so came to the hospital. He describes the abdominal pain as sharp in nature with radiation to his back. He reports numerous bouts of pancreatitis in the past. By his report these episodes never show any changes on CT scan(recent). He denies the use of NSAIDs, he denies drinking alcohol, stating that he quit drinking [address] scan of the abdomen showed no acute abnormalities, unremarkable pancreas(12/10/21). His lab work was unremarkable with the exception of lipase of 242( which is better than before 423). He required multiple doses of IV narcotics in the ED and his abdominal pain was unable to be controlled. For this reason the decision was made to admit him for further management. Patient feels nauseated, denies any fever chills or diarrhea or cough or phlegm. Denies any weakness or numbness or headache or blurry vision. Review of Systems Review of Systems: as above. [facility] Medical History (Updated 12/14/21 @ 14:35 by Derick Gómez MD) Anxiety FH: cholecystectomy Psoriatic arthritis Sphincter of Oddi dysfunction Surgical History (Updated 12/10/21 @ 14:30 by CHIVO Ware) H/O knee surgery History of cholecystectomy History of hernia surgery Previous back surgery Social History (Updated 12/10/21 @ 14:30 by CHIVO Ware) Alcohol intake: former Patient Tobacco Use Status: Current everyday Tobacco user Tobacco use type: Cigarette Cigarette Packs Per Day: 1 Smoked in Last 30 Days: Yes Use of substances other than those prescribed or required for medical reasons: No Advance Directives: No Advance Directives Information Provided: No Meds Allergies Allergy/AdvReac Type Severity Reaction Status Date / Time haloperidol [From Haldol] Allergy Involuntary Verified 12/10/21 09:16 Spasms ketorolac [From Toradol] Allergy Involuntary Verified 12/10/21 09:16 Spasms Active Medications: Current Medications Clonazepam (Clonazepam 1 Mg Tablet) 1 mg PO TID SANGITA Enoxaparin Sodium (Enoxaparin Sodium 40 Mg/0.4 Ml Syringe) 40 mg SUBCUT DAILY [facility] Hydromorphone HCl (Hydromorphone Hcl 0.5 Mg/0.5 Ml Syringe) 0.5 mg IVPUSH Q4H PRN; Protocol PRN Reason: Pain, Moderate (Pain Scale 4-6 Lactated Ringer's (Lr) 1,000 mls @ 100 mls/hr IVCONT .Q10H [facility] Ondansetron HCl (Ondansetron Hcl 4 Mg/2 Ml Vial) 4 mg IVPUSH Q4H PRN PRN Reason: Nausea Pantoprazole Sodium (Pantoprazole Sodium 40 Mg/10 Ml Vial) 40 mg IVPUSH BID [facility] Pharmacy Consult (Consult Rx Perform Med Rec) 1 each MISCELLANE ONCE PRN PRN Reason: Consult order Sertraline HCl (Sertraline Hcl 100 Mg Tablet) 200 mg PO DAILY [facility] Sodium Chloride (0.9 % Sodium Chloride Flush 3 Ml Syringe) 3 ml IVFLUSH QSHIFT [facility] Home Medications Medication Instructions Recorded Confirmed Last Taken Type clonazepam 1 mg tablet (Klonopin) 1 mg PO TID 12/10/21 12/14/21 Unknown History sertraline 100 mg tablet (Zoloft) 200 mg PO DAILY 12/10/21 12/14/21 12/10/21 History Physical Exam Vital Signs and Narrative: Vital Signs: Last Vital Signs Temp 98.2 F 12/14/21 08:50 Pulse 81 12/14/21 11:35 Resp 20 12/14/21 11:35 BP 144/74 H 12/14/21 11:35 Pulse Ox 95 12/14/21 08:50 BMI result Body Mass Index 38.0 Physical exam: Appearance: Alert.? Oriented X3.? not in distress.? Eyes: Pupils equal, round and reactive to light.? Sclera nonicteric.? ENT: Pharynx normal.? Moist mucous membranes. cvs: rrr, [id number] , no murmur res: clear to auscultation ,no rhonchii or wheezing abd: no rebound or guarding , epigastric and left upper abd pain, bs present. ext pulses present , no cyanosis ,Gait well balanced well coordinated. neuro: axo3 , nonfocal. Results Labs CBC and Chem 7: 12/14/21 08:58 12/14/21 08:58 Labs: Laboratory Results - last 24 hr 12/14/21 12/14/21 12/14/21 08:56 08:58 08:58 MCV 89.5 MCH 30.6 MCHC 34.2 RDW 13.5 Plt Count 156 L MPV 9.5 Immature Gran % (Auto) 0.3 Neut % (Auto) 71.9 Lymph % (Auto) 15.4 L [place] % (Auto) 6.1 Eos % (Auto) 5.8 H Baso % (Auto) 0.5 Lymph # (Auto) 1.0 L [place] # (Auto) 0.4 Eos # (Auto) 0.4 Baso # (Auto) 0.0 Abs Immat Gran (auto) 0.02 Absolute Neuts (auto) 4.5 Absolute Nucleated RBC 0.000 Nucleated RBC % (auto) 0.0 Anion Gap Cancelled Estim Creat Clear Calc Cancelled Estimated GFR Cancelled Random Glucose Cancelled Calcium Cancelled Magnesium Cancelled Total Bilirubin Cancelled Direct Bilirubin Cancelled AST Cancelled ALT Cancelled Alkaline Phosphatase Cancelled Total Protein Cancelled Albumin Cancelled Triglycerides Cholesterol LDL Cholesterol, Calc HDL Cholesterol Lipase Cancelled Urine Color Urine Appearance Urine pH Ur Specific [place] Urine Protein Urine Glucose (UA) Urine Ketones Urine Blood Urine Nitrite Ur Leukocyte Esterase Urine Opiates Screen Urine Fentanyl Screen Ur Barbiturates Screen Ur Phencyclidine Scrn Ur Amphetamines Screen U Benzodiazepines Scrn Urine Cocaine Screen U Marijuana (THC) Screen Ethyl Alcohol COVID-19 ([facility]) Negative COVID-19 Clin Com See Note 12/14/21 12/14/21 12/14/21 08:58 08:58 09:29 MCV MCH MCHC RDW Plt Count MPV Immature Gran % (Auto) Neut % (Auto) Lymph % (Auto) [place] % (Auto) Eos % (Auto) Baso % (Auto) Lymph # (Auto) [place] # (Auto) Eos # (Auto) Baso # (Auto) Abs Immat Gran (auto) Absolute Neuts (auto) Absolute Nucleated RBC Nucleated RBC % (auto) Anion Gap 10 L Estim Creat Clear Calc 125.9 Estimated GFR > 60 Random Glucose 102 Calcium 8.9 Magnesium 1.9 Total Bilirubin 0.6 Direct Bilirubin 0.2 AST 16 ALT 21 Alkaline Phosphatase 106 Total Protein 6.7 Albumin 4.1 Triglycerides 143 Cholesterol 164 LDL Cholesterol, Calc 111 HDL Cholesterol 25 Lipase 242 H Urine Color Urine Appearance Urine pH Ur Specific [place] Urine Protein Urine Glucose (UA) Urine Ketones Urine Blood Urine Nitrite Ur Leukocyte Esterase Urine Opiates Screen Not Detected Urine Fentanyl Screen Not Detected Ur Barbiturates Screen Not Detected Ur Phencyclidine Scrn Not Detected Ur Amphetamines Screen Not Detected U Benzodiazepines Scrn POSITIVE H Urine Cocaine Screen Not Detected U Marijuana (THC) Screen POSITIVE H Ethyl Alcohol < 10 COVID-19 ([facility]) COVID-19 Clin Com 12/14/21 09:29 MCV MCH MCHC RDW Plt Count MPV Immature Gran % (Auto) Neut % (Auto) Lymph % (Auto) [place] % (Auto) Eos % (Auto) Baso % (Auto) Lymph # (Auto) [place] # (Auto) Eos # (Auto) Baso # (Auto) Abs Immat Gran (auto) Absolute Neuts (auto) Absolute Nucleated RBC Nucleated RBC % (auto) Anion Gap Estim Creat Clear Calc Estimated GFR Random Glucose Calcium Magnesium Total Bilirubin Direct Bilirubin AST ALT Alkaline Phosphatase Total Protein Albumin Triglycerides Cholesterol LDL Cholesterol, Calc HDL Cholesterol Lipase Urine Color YELLOW Urine Appearance CLEAR Urine pH 5.5 Ur Specific [place] >= 1.030 H Urine Protein NEG Urine Glucose (UA) NEG Urine Ketones NEG Urine Blood NEG Urine Nitrite NEG Ur Leukocyte Esterase NEG Urine Opiates Screen Urine Fentanyl Screen Ur Barbiturates Screen Ur Phencyclidine Scrn Ur Amphetamines Screen U Benzodiazepines Scrn Urine Cocaine Screen U Marijuana (THC) Screen Ethyl Alcohol COVID-19 ([facility]) COVID-19 Clin Com Assessment and Plan (1) Pancreatitis: Status: Acute (2) Abdominal pain: Status: Acute (3) Gastritis: Status: Acute Plan ?56 year old male with history of psoriatic arthritis, anxiety who presents with abdominal pain 1.Abdominal pain-possible gastritis ,h/o pancreatitis, but negative CT scan (recent) lipase elevated but better than before . he says he has possible dilation done for sphincter oddi -when he had previous episodes of pancreatitis. NPO, IVF IV pepcid Pain control ADAT Gi eval 2.Anxiety continue home meds 3. mild thrombocytopenia: moniter cbc dvt ppx - s/c lovenox. patient is full code Quality Stroke Does the patient have a stroke diagnosis?: No VTE Prior VTE?: No VTE Risk Level:: Medical - moderate - high VTE Device Contraindication: N/A - Device Ordered VTE Drug Contraindication: N/A - Med Ordered
[2021-12-14] MEDS: Lactated Ringers 1,000 ML 100 ML IVCONT (12:50)
[2021-12-14] MEDS: Pantoprazole Sodium 40 MG/10 ML VIAL IVPUSH (12:51)
[2021-12-14] MEDS: Enoxaparin Sodium 40 MG/0.4 ML SYRINGE SUBCUT (12:51)
--- NOTE | 2021-12-14 14:56 | PC.NURSE ---
patient somehow was given a lunch tray. patient was aware he was not supposed to eat but did anyway. shortly after called RN into room requesting to have is pain meds changed form q4 hours to q3 hours. messaged dr bailey but meds not going to be changed at this time. patient told not to eat anymore, made NPO. will medicate when pain med is due.
[2021-12-14] MEDS: clonazePAM 1 MG TABLET PO (15:28)
[2021-12-14] MEDS: HYDROmorphone HCl 0.5 MG/0.5 ML SYRINGE IVPUSH ×2 (15:28→15:58)
--- NOTE | 2021-12-14 17:12 | P.DS_ITS ---
DS: Providers Provider Date of Service: 12/14/21 Date of admission: 12/14/21 12:16 Primary care physician: None Physician Consults: 12/14/21 12:18 Consult to Gastroenterology Routine Consulting Provider: [facility] Reason for consultation: acute pancreatitis Has provider been notified: No DS: Diagnosis Discharge Diagnosis (1) Pancreatitis: Status: Acute (2) Abdominal pain: Status: Acute (3) Gastritis: Status: Acute DS: Summary Hospital Course Hospital Course: Patient admitted for acute acute pancreatitis-started on bowel rest, pain management, GI consulted: Patient subsequently eloped. Final diagnosis: PossibleAcute pancreatitis vs gastritis vs Time Spent with Patient Time attestation: Total time spent providing and/or coordinating discharge services: Discharge coordination time: Greater than 30 minutes Quality: Stroke Does the patient have a stroke diagnosis?: No Physical Exam Vital Signs: Vital Signs: Last Vital Signs Temp 98.2 F 12/14/21 14:02 Pulse 70 12/14/21 15:27 Resp 20 12/14/21 15:27 BP 122/80 12/14/21 15:27 Pulse Ox 96 12/14/21 15:27 BMI result Body Mass Index 38.0 Patient eloped. DS: Data Data Completed and Pending Labs on day of discharge: Laboratory Results - last 24 hr 12/14/21 12/14/21 12/14/21 08:56 08:58 08:58 WBC 6.2 RBC 4.94 Hgb 15.1 Hct 44.2 MCV 89.5 MCH 30.6 MCHC 34.2 RDW 13.5 Plt Count 156 L MPV 9.5 Immature Gran % (Auto) 0.3 Neut % (Auto) 71.9 Lymph % (Auto) 15.4 L [place] % (Auto) 6.1 Eos % (Auto) 5.8 H Baso % (Auto) 0.5 Lymph # (Auto) 1.0 L [place] # (Auto) 0.4 Eos # (Auto) 0.4 Baso # (Auto) 0.0 Abs Immat Gran (auto) 0.02 Absolute Neuts (auto) 4.5 Absolute Nucleated RBC 0.000 Nucleated RBC % (auto) 0.0 Sodium Cancelled Potassium Cancelled Chloride Cancelled Carbon Dioxide Cancelled Anion Gap Cancelled BUN Cancelled Creatinine Cancelled Estim Creat Clear Calc Cancelled Estimated GFR Cancelled Random Glucose Cancelled Calcium Cancelled Magnesium Cancelled Total Bilirubin Cancelled Direct Bilirubin Cancelled AST Cancelled ALT Cancelled Alkaline Phosphatase Cancelled Total Protein Cancelled Albumin Cancelled Triglycerides Cholesterol LDL Cholesterol, Calc HDL Cholesterol Lipase Cancelled Urine Color Urine Appearance Urine pH Ur Specific [place] Urine Protein Urine Glucose (UA) Urine Ketones Urine Blood Urine Nitrite Ur Leukocyte Esterase Urine Opiates Screen Urine Fentanyl Screen Ur Barbiturates Screen Ur Phencyclidine Scrn Ur Amphetamines Screen U Benzodiazepines Scrn Urine Cocaine Screen U Marijuana (THC) Screen Ethyl Alcohol COVID-19 ([facility]) Negative COVID-[employer] See Note 12/14/21 12/14/21 12/14/21 08:58 08:58 09:29 WBC RBC Hgb Hct MCV MCH MCHC RDW Plt Count MPV Immature Gran % (Auto) Neut % (Auto) Lymph % (Auto) [place] % (Auto) Eos % (Auto) Baso % (Auto) Lymph # (Auto) [place] # (Auto) Eos # (Auto) Baso # (Auto) Abs Immat Gran (auto) Absolute Neuts (auto) Absolute Nucleated RBC Nucleated RBC % (auto) Sodium 138 Potassium 4.1 Chloride 106 Carbon Dioxide 26 Anion Gap 10 L BUN 16 Creatinine 0.81 Estim Creat Clear Calc 125.9 Estimated GFR > 60 Random Glucose 102 Calcium 8.9 Magnesium 1.9 Total Bilirubin 0.6 Direct Bilirubin 0.2 AST 16 ALT 21 Alkaline Phosphatase 106 Total Protein 6.7 Albumin 4.1 Triglycerides 143 Cholesterol 164 LDL Cholesterol, Calc 111 HDL Cholesterol 25 Lipase 242 H Urine Color Urine Appearance Urine pH Ur Specific [place] Urine Protein Urine Glucose (UA) Urine Ketones Urine Blood Urine Nitrite Ur Leukocyte Esterase Urine Opiates Screen Not Detected Urine Fentanyl Screen Not Detected Ur Barbiturates Screen Not Detected Ur Phencyclidine Scrn Not Detected Ur Amphetamines Screen Not Detected U Benzodiazepines Scrn POSITIVE H Urine Cocaine Screen Not Detected U Marijuana (THC) Screen POSITIVE H Ethyl Alcohol < 10 COVID-19 ([facility]) COVID-[place] [employer] 12/14/21 09:29 WBC RBC Hgb Hct MCV MCH MCHC RDW Plt Count MPV Immature Gran % (Auto) Neut % (Auto) Lymph % (Auto) [place] % (Auto) Eos % (Auto) Baso % (Auto) Lymph # (Auto) [place] # (Auto) Eos # (Auto) Baso # (Auto) Abs Immat Gran (auto) Absolute Neuts (auto) Absolute Nucleated RBC Nucleated RBC % (auto) Sodium Potassium Chloride Carbon Dioxide Anion Gap BUN Creatinine Estim Creat Clear Calc Estimated GFR Random Glucose Calcium Magnesium Total Bilirubin Direct Bilirubin AST ALT Alkaline Phosphatase Total Protein Albumin Triglycerides Cholesterol LDL Cholesterol, Calc HDL Cholesterol Lipase Urine Color YELLOW Urine Appearance CLEAR Urine pH 5.5 Ur Specific [place] >= 1.030 H Urine Protein NEG Urine Glucose (UA) NEG Urine Ketones NEG Urine Blood NEG Urine Nitrite NEG Ur Leukocyte Esterase NEG Urine Opiates Screen Urine Fentanyl Screen Ur Barbiturates Screen Ur Phencyclidine Scrn Ur Amphetamines Screen U Benzodiazepines Scrn Urine Cocaine Screen U Marijuana (THC) Screen Ethyl Alcohol COVID-19 ([facility]) COVID-19 Clin Com Discharge Plan Discharge Patient Disposition: Left Against Medical Advice Discharge Diagnosis: possible gasritis vs pancreatitis. Referrals: Physician,None [Primary Care Provider] - 1 Week Discharge Medications: New omeprazole 20 mg capsule,delayed release(DR/EC) 20 mg PO DAILY Qty: 30 0RF Continued sertraline [Zoloft] 100 mg Tablet 200 mg PO DAILY 0RF clonazepam [Klonopin] 1 mg Tablet 1 mg PO TID 0RF Discharge Orders: Discharge Order (Routine); Ordered 12/14/21 Ordered By: Derick Gómez Diet: advance to usual diet Activity on Discharge: As tolerated Care Plan Goals: as above. Health Concerns: as above. Plan of Treatment: as above. Assessment: as above. Discharge Date/Time: 12/14/21 17:03
== END 2021-12-14 17:03 | disposition left against medical advice (07) | DRG 391 ==
LOC: HO.ED 11:17 → HO.EDOVER 12:21
PROVIDERS: Physician Assistant; Admitting Provider Internal Medicine; Emergency Provider Emergency Medicine; Visit Provider Internal Medicine
DX: K29.70 Gastritis, unspecified, without bleeding (principal); K85.90 Acute pancreatitis without necrosis or infection, unspecified; D69.6 Thrombocytopenia, unspecified; F41.9 Anxiety disorder, unspecified; F32.A Depression, unspecified; L40.50 Arthropathic psoriasis, unspecified; Z20.822 Contact with and (suspected) exposure to COVID-19; Z79.899 Other long term (current) drug therapy
CPT/HCPCS: 36415; 80048; 80061; 80076; 80307; 81003; 82077; 83690; 83735; 85025; 87635; 96361; 96374; 96375; 96376; 99285; 99291; J1170; J1650; J2405; J2765